=== PATIENT | female | born 1980 | race Caucasian/White ===

== ENCOUNTER 2021-06-23 18:59 | Emergency (ER) | payer OTHER ==
[2021-06-23] MEDS ORDERED: MOTRIN600 MG PO (20:46)
== END 2021-06-23 20:59 | disposition home or self-care (01) ==
LOC: FER 18:59
DX: S93.402A Sprain of unspecified ligament of left ankle, initial encounter (principal); E11.9 Type 2 diabetes mellitus without complications; Z79.84 Long term (current) use of oral hypoglycemic drugs; W19.XXXA Unspecified fall, initial encounter; X50.1XXA Overexertion from prolonged static or awkward postures, initial encounter; Y93.67 Activity, basketball; Y92.009 Unspecified place in unspecified non-institutional (private) residence as the place of occurrence of the external cause
CPT/HCPCS: 73610